=== PATIENT | male | born 1990 | race Caucasian/White ===

== ENCOUNTER 2024-07-06 15:08 | Outpatient (CLI) | payer BC ==
[2024-07-06 16:08] LABS: #Basophils 0.03 10x3/uL (0.0-0.2); %Basophils 0.4 % (0.0-1.0); %Eosinophils 0.7 % (0.0-10.0); %Lymphocytes 19.3 % (21.0-51.0); %Monocytes 6.2 % (0.0-10.0); %Neutrophils 73.1 % (42.0-75.0); Hemoglobin 13.9 g/dL (14.0-18.0); Mean Corpuscular HGB CONC 33.1 g/dL (32.0-36.0); Mean Corpuscular Hemoglobin 27.1 pg (27.0-31.0); Mean Corpuscular Volume 81.9 fL (78.0-98.0); Mean Platelet Volume 10.5 fL (7.4-10.4); Platelet Count 234 10x3/uL (130-400); RBC Distribution Width 13.4 % (11.5-14.5); Red Blood Cell (RBC) Count 5.13 mill/uL (4.70-6.10)
[2024-07-06 16:22] LABS: ALT (SGPT) 19 U/L (8-55); AST (SGOT) 15 U/L (5-34); Albumin 3.9 g/dL (3.5-5.0); Alkaline Phosphatase 59 U/L (40-110); Anion Gap 12 mmol/L (10-20); BUN (Urea Nitrogen) 26 mg/dL (8.9-20.6); Bilirubin, Total 0.4 mg/dL (0.2-1.2); Calc. Creatinine Clearance 0 mL/min (70-130); Carbon Dioxide 22 mmol/L (22-29); Chloride 107 mmol/L (98-107); Estimated GFR 79; Globulin 3.9 g/dL (2.4-3.5); Glucose 90 mg/dL (70-105); Potassium 3.9 mmol/L (3.5-5.1); Protein, Total 7.8 g/dL (6.0-8.3); Sodium 137 mmol/L (136-145)
== END 2024-07-06 15:09 | disposition home or self-care (01) ==
LOC: LABBT 15:08
PROVIDERS: ATTEND Surgery
DX: Z01.812 Encounter for preprocedural laboratory examination (principal); E66.01 Morbid (severe) obesity due to excess calories
CPT/HCPCS: 80053; 83036; 85025; 93005; 93010

== ENCOUNTER 2024-07-15 06:00 | Day surgery (SDC) | payer BC ==
[2024-07-06 15:36] VITALS: BMI 44.3
[2024-07-15] MEDS ORDERED: CEFAZOLIN 2 GM VIAL ONE ×3 (06:57→23:21)
[2024-07-15] MEDS ORDERED: Ketamine In 0.9 % NaCl 50 MG/5 ML SYRINGE ONE (06:57)
[2024-07-15] MEDS ORDERED: PROPOFOL 200 MG/20 ML VIAL ONE ×2 (06:57)
[2024-07-15] MEDS ORDERED: Rocuronium Bromide 10 MG/ML (10ML VIAL) ONE (06:57)
[2024-07-15] MEDS ORDERED: Midazolam HCl 2 mg/2 ml Vial ONE (06:57)
[2024-07-15] MEDS ORDERED: SUGAMMADEX SODIUM 200 MG/2 ML VIAL ONE (06:57)
[2024-07-15] MEDS ORDERED: fentaNYL PF 100 MCG/2 ML SYRINGE ONE ×3 (06:57)
[2024-07-15] MEDS ORDERED: Droperidol 5 MG/2 ML VIAL ONE (06:57)
[2024-07-15] MEDS ORDERED: HYDROmorphone 0.5 MG/0.5 ML SYRINGE ONE (06:57)
[2024-07-15] MEDS ORDERED: Dexmedetomidine 200 MCG/2 ML VIAL ONE (06:57)
[2024-07-15] MEDS ORDERED: SUCCINYLCHOLINE/SOD CL,ISO/PF 200 MG/10 ML SYRINGE FS ONE (06:57)
[2024-07-15] MEDS ORDERED: Promethazine HCl 25 MG/ML VIAL ONE (06:57)
[2024-07-15] MEDS ORDERED: EPINEPHrine 1 MG/ML VIAL ONE (06:57)
[2024-07-15] MEDS ORDERED: Heparin 5,000 UNITS/ML VIAL ONE (06:57)
[2024-07-15] MEDS ORDERED: Ondansetron PF 4 MG/2 ML Vial ONE ×2 (06:57→22:28)
[2024-07-15] MEDS ORDERED: Bupivacaine 0.25% HCL 30 ML VIAL ONE (06:57)
[2024-07-15] MEDS ORDERED: Lidocaine 1% PF 5 ML VIAL ONE (07:44)
[2024-07-15] MEDS ORDERED: Dexamethasone 20 MG/5 ML VIAL ONE (07:44)
[2024-07-15] MEDS ORDERED: Sodium Chloride 0.9% 100 ML ONE ×2 (15:20→23:21)
[2024-07-15] MEDS ORDERED: D5 1/2 NS w/20 mEq KCL 1,000 ML ONE (18:32)
[2024-07-16] MEDS ORDERED: Promethazine HCl 25 MG/ML VIAL ONE ×2 (02:59→08:12)
[2024-07-16] MEDS ORDERED: D5 1/2 NS w/20 mEq KCL 1,000 ML ONE (03:13)
[2024-07-16] MEDS ORDERED: Ondansetron PF 4 MG/2 ML Vial ONE (07:20)
[2024-07-16] MEDS ORDERED: Enoxaparin 40 MG (0.4 mL) SYRINGE ONE (07:58)
[2024-07-16] MEDS ORDERED: Pantoprazole 40 MG VIAL ONE (07:58)
== END 2024-07-16 10:35 | disposition home or self-care (01) ==
LOC: SDC 06:00 → SURG A 08:03 → UNDOADMIN 08:03 → SDC 07-16 10:35 → UNDODISIN 07-16 10:35
PROVIDERS: ATTEND Surgery
PROC: 0DB64Z3 Excision of Stomach, Percutaneous Endoscopic Approach, Vertical (ICD-10-PCS; principal; 2024-07-15)
DX: E66.01 Morbid (severe) obesity due to excess calories (principal); Z68.41 Body mass index [BMI] 40.0-44.9, adult; Z79.899 Other long term (current) drug therapy; K21.9 Gastro-esophageal reflux disease without esophagitis; Z87.891 Personal history of nicotine dependence; R11.0 Nausea; R05.9 Cough, unspecified
CPT/HCPCS: 36416; 88307; J0171; J0665; J1100; J1644; J1790; J2250; J2405; J2550; J2704; J3490; S2900